=== PATIENT | female | born 1985 | race Caucasian/White ===

== ENCOUNTER 2019-11-22 17:18 | Emergency (ER) | payer OTHER, SELFPAY ==
[2019-11-22 17:18] VITALS: BP 127/87; PULSE 11; RESP 18; TEMP 36.8; O2SAT 97; BMI 28.9
--- NOTE | 2019-11-22 17:50 | ED.VIS.GEN ---
History of Present Illness Chief Complaint: Headache Informant: Patient Narrative: Patient's presents for evaluation of headache vomiting and diarrhea. Patient states that last Sunday she had a typical migraine for her. She took her triptan and by Sunday was gone. However on Sunday she began to have vomiting and diarrhea. She notes a bit of a different headache and that it is all frontal. She next notes some neck soreness. She states that as long she remains still the headaches not as bad but if she attempts to move it gets worse. She went to [facility] this morning where she states that she received a migraine cocktail and something to drink for her stomach but she continues to have diarrhea. She has not had any Imodium or antidiarrheal medications. She states is difficult for her to take other medications and keep them down because of the vomiting. No rashes. No fevers. Past Medical History - Allergies and Home Meds Allergies/Adverse Reactions: Allergies codeine Adverse Reaction (Intermediate, Verified 11/22/19 17:21) Other vomiting acetaminophen [From Vicodin] Adverse Reaction (Verified 11/22/19 17:21) Vomiting hydrocodone bitartrate [From Vicodin] Adverse Reaction (Verified 11/22/19 17:21) Vomiting meperidine HCl [From Demerol] Adverse Reaction (Verified 11/22/19 17:21) Vomiting Primary Care Physician: Ashlie Macias MD [Primary Care Provider] - Smoking Status: Unknown if ever smoked Review of Systems General: Denies: Chills, Fever, Sweats Eyes: Denies: Visual changes - bilaterally, Diplopia ENT: Denies: Rhinorrhea, Sore throat Cardiovascular: Denies: Chest pain, Palpitations Respiratory: Denies: Dyspnea, Cough, Dyspnea on exertion Gastrointestinal: Reports: Nausea, Vomiting, Diarrhea. Denies: Abdominal pain, Melena, Hematochezia Genitourinary: Denies: Dysuria, Hematuria, Frequency Musculoskeletal: Reports: Neck pain. Denies: Back pain, Extremity Pain Skin: Denies: Rash, Wounds Neurological: Reports: Headache. Denies: Weakness, Numbness Physical Exam Vital Signs/Narrative: Vital Signs Temp Pulse Resp BP Pulse Ox 11/22/19 17:18 98.2 F 11 L 18 127/87 H 97 Inital Vital Signs reviewed: Yes General: Well nourished, Well developed, No Acute Distress Head: Normocephalic, Atraumatic Eyes: Perrl, EOMI ENT: Moist mucous membranes, No rhinorrhea Neck: Supple, Nontender Cardiovascular: Regular rate, Regular rhythm, No murmurs Respiratory: No distress, CTA bilaterally, Chest nontender Abdomen: Soft, Nontender, Nondistended, Normal bowel sounds Back: Nontender, Normal Inspection Extremities: Nontender, No edema Skin: Normal color, No rash Neurological: Alert, Oriented x3, Cranial nerves II-XII grossly intact, Normal Strength, Normal Sensation Psychological: Normal affect, Normal Mood Diagnostic/Tx/Re-eval - Medical Decision Making She received IV fluids Compazine Toradol Benadryl. Her headache is better not resolved but better. I think her headache is different than her classical migraines because it is more of a tension headache. She has been vomiting having this gastroenteritis now her neck is a little sore which is probably causing a bit of a tension headache. No write for to have Zofran at home. Recommend some Imodium as well as well as anti-inflammatories. Continue to orally hydrate return if worsening or concerns ED Disposition - Plan for ED Patient: Disposition: Home or Assisted Living Diagnosis: Headache, Gastroenteritis Instructions: ED CEPHALGIA Tension Headache, ED Viral Gastroenteritis Prescriptions: Ondansetron [Zofran Odt] 4 mg PO Q6H PRN PRN #20 tab PRN Reason: Nausea Transmission Status: Pending to [facility] Referrals: Ashlie Macias MD [Primary Care Provider] - As Needed
[2019-11-22] MEDS: DiphenhydrAMINE 50 MG/ML Syringe 25 MG IV (18:24)
[2019-11-22] MEDS: 0.9% Normal Saline 1,000 ML 999 ML IV (18:24)
[2019-11-22] MEDS: proCHLORPERazine 10 MG/2 ML Vial IV (18:24)
[2019-11-22] MEDS: Ketorolac 30 MG/ML Syringe IV (18:24)
[2019-11-22 19:18] VITALS: BP 109/66; PULSE 97; RESP 18; O2SAT 97
[2019-11-22 20:48] VITALS: RESP 16
== END 2019-11-22 20:49 | disposition home or self-care (01) ==
PROVIDERS: Emergency Provider Emergency Medicine; PCP Internal Medicine
DX: R51 Headache (principal); K52.9 Noninfective gastroenteritis and colitis, unspecified
CPT/HCPCS: 96361; 96374; 96375; 99284; J7030; A4216

== ENCOUNTER → 2020-03-04 17:38 | Outpatient (CLI) | payer OTHER, SELFPAY | PROVIDERS: PCP Internal Medicine | DX: Z20.828 Contact with and (suspected) exposure to other viral communicable diseases (principal) | CPT/HCPCS: 87635; C9803; U0003 ==

== ENCOUNTER 2020-05-24 07:35 | Outpatient (RCR) | payer OTHER, SELFPAY | END 2020-05-31 23:59 | LOC: LABSPEC 07:35 | PROVIDERS: PCP Internal Medicine; Referring Provider Family Medicine Geriatric Medicine; Visit Provider Family Medicine Geriatric Medicine | DX: Z03.818 Encounter for observation for suspected exposure to other biological agents ruled out (principal) ==

== ENCOUNTER 2020-05-26 10:00 | Outpatient (RCR) | payer OTHER, SELFPAY | END 2020-05-31 23:59 | LOC: EMPH 10:00 | PROVIDERS: PCP Internal Medicine; Visit Provider Family Medicine Geriatric Medicine | DX: Z03.818 Encounter for observation for suspected exposure to other biological agents ruled out (principal) | CPT/HCPCS: 87426 ==

== ENCOUNTER 2020-06-30 14:05 | Outpatient (RCR) | payer OTHER, SELFPAY | END 2020-07-01 23:59 | LOC: EMPH 14:05 | PROVIDERS: PCP Internal Medicine; Visit Provider Family Medicine Geriatric Medicine | DX: Z03.818 Encounter for observation for suspected exposure to other biological agents ruled out (principal) | CPT/HCPCS: 87426 ==

== ENCOUNTER 2020-08-12 10:55 | Outpatient (RCR) | payer OTHER, SELFPAY | END 2020-08-29 23:59 | LOC: EMPH 10:55 | PROVIDERS: Visit Provider Family Medicine Geriatric Medicine | DX: Z03.818 Encounter for observation for suspected exposure to other biological agents ruled out (principal) | CPT/HCPCS: 87426 ==

== ENCOUNTER 2020-09-23 20:36 | Outpatient (RCR) | payer OTHER, SELFPAY | END 2020-09-29 23:59 | LOC: EMPH 20:36 | PROVIDERS: Visit Provider Family Medicine Geriatric Medicine | DX: Z03.818 Encounter for observation for suspected exposure to other biological agents ruled out (principal) | CPT/HCPCS: 87426 ==

== ENCOUNTER 2020-10-27 07:36 | Outpatient (RCR) | payer OTHER, SELFPAY | END 2020-10-29 23:59 | LOC: EMPH 07:36 | PROVIDERS: Referring Provider Family Medicine Geriatric Medicine; Visit Provider Family Medicine Geriatric Medicine | DX: Z03.818 Encounter for observation for suspected exposure to other biological agents ruled out (principal) | CPT/HCPCS: 87426 ==

== ENCOUNTER 2020-11-26 08:47 | Outpatient (RCR) | payer OTHER, SELFPAY | END 2020-11-29 23:59 | LOC: EMPH 08:47 | PROVIDERS: Referring Provider Family Medicine Geriatric Medicine; Visit Provider Family Medicine Geriatric Medicine | DX: Z03.818 Encounter for observation for suspected exposure to other biological agents ruled out (principal) | CPT/HCPCS: 87426 ==

== ENCOUNTER 2020-12-28 11:21 | Outpatient (RCR) | payer OTHER, SELFPAY | END 2020-12-29 23:59 | LOC: EMPH 11:21 | PROVIDERS: Referring Provider Family Medicine Geriatric Medicine; Visit Provider Family Medicine Geriatric Medicine | DX: Z03.818 Encounter for observation for suspected exposure to other biological agents ruled out (principal) | CPT/HCPCS: 87426 ==

== ENCOUNTER 2021-01-07 07:52 | Outpatient (RCR) | payer OTHER, SELFPAY | END 2021-01-29 23:59 | LOC: EMPH 07:52 | PROVIDERS: Referring Provider Family Medicine Geriatric Medicine; Visit Provider Family Medicine Geriatric Medicine | DX: Z03.818 Encounter for observation for suspected exposure to other biological agents ruled out (principal) | CPT/HCPCS: 87426 ==

== ENCOUNTER 2021-03-01 16:09 | Outpatient (RCR) | payer OTHER, SELFPAY | END 2021-03-01 23:59 | disposition home or self-care (01) | LOC: EMPH 16:09 | PROVIDERS: Referring Provider Family Medicine Geriatric Medicine; Visit Provider Family Medicine Geriatric Medicine | DX: Z03.818 Encounter for observation for suspected exposure to other biological agents ruled out (principal) | CPT/HCPCS: 87426 ==

== ENCOUNTER 2021-03-04 14:08 | Outpatient (RCR) | payer OTHER, SELFPAY ==
[2021-03-02 00:23] VITALS: BMI 28.9
== END 2021-03-31 23:59 ==
LOC: EMPH 14:08
PROVIDERS: Referring Provider Family Medicine Geriatric Medicine; Visit Provider Family Medicine Geriatric Medicine
DX: Z03.818 Encounter for observation for suspected exposure to other biological agents ruled out (principal)
CPT/HCPCS: 87426

== ENCOUNTER 2021-04-01 10:45 | Outpatient (RCR) | payer OTHER, SELFPAY ==
[2021-04-01 00:17] VITALS: BMI 28.9
== END 2021-05-01 23:59 ==
LOC: EMPH 10:45
PROVIDERS: Referring Provider Family Medicine Geriatric Medicine; Visit Provider Family Medicine Geriatric Medicine
DX: Z03.818 Encounter for observation for suspected exposure to other biological agents ruled out (principal)

== ENCOUNTER 2021-04-06 17:36 | Outpatient (RCR) | payer OTHER, SELFPAY ==
--- NOTE | 2021-06-14 13:31 | HP.PT.NRP ---
TMAMY HERNÁNDEZ was seen in my office for initial evaluation on . The following Plan of Care was established for this patient: This patient was last seen in our office 04/06/21. Pertinent comments regarding their Physical therapy will appear below: Pt. was seen in PT for self pay DN for her HAs. Pt. has not been seen in several months and will be DC from PT at this point in time. At this point I will be discontinuing this patient from physical therapy. I would be happy to see this patient again in the future if found appropriate by the physician. Thank you! Roberto Leonard, ROBERTHT
== END 2021-04-06 19:00 | disposition home or self-care (01) ==
LOC: PT 17:36
DX: R69 Illness, unspecified (principal)

== ENCOUNTER 2021-05-23 06:43 | Outpatient (RCR) | payer OTHER, SELFPAY ==
[2021-05-02 00:13] VITALS: BMI 28.9
== END 2021-05-31 23:59 ==
LOC: EMPH 06:43
PROVIDERS: Referring Provider Family Medicine Geriatric Medicine; Visit Provider Family Medicine Geriatric Medicine
DX: Z03.818 Encounter for observation for suspected exposure to other biological agents ruled out (principal)
CPT/HCPCS: 87426

== ENCOUNTER 2021-06-23 10:22 | Outpatient (RCR) | payer OTHER, SELFPAY ==
[2021-06-01 00:19] VITALS: BMI 28.9
== END 2021-07-01 23:59 ==
LOC: EMPH 10:22
PROVIDERS: Referring Provider Family Medicine Geriatric Medicine; Visit Provider Family Medicine Geriatric Medicine
DX: Z03.818 Encounter for observation for suspected exposure to other biological agents ruled out (principal)
CPT/HCPCS: 87426

== ENCOUNTER 2021-10-20 16:10 | Outpatient (RCR) | payer OTHER, SELFPAY ==
[2021-07-02 00:18] VITALS: BMI 28.9
== END 2021-10-29 23:59 ==
LOC: EMPH 16:10
PROVIDERS: Referring Provider Family Medicine Geriatric Medicine; Visit Provider Family Medicine Geriatric Medicine
DX: Z03.818 Encounter for observation for suspected exposure to other biological agents ruled out (principal)
CPT/HCPCS: 87811

== ENCOUNTER 2021-12-22 15:18 | Outpatient (RCR) | payer OTHER, SELFPAY | END 2021-12-29 23:59 | LOC: LABSPEC 15:18 | PROVIDERS: Visit Provider Family Medicine Geriatric Medicine | DX: Z01.84 Encounter for antibody response examination (principal) | CPT/HCPCS: 87811 ==

== ENCOUNTER 2022-04-13 07:42 | Day surgery (SDC) | payer OTHER, SELFPAY ==
--- NOTE | 2022-04-11 16:10 | PCM.HP.BLA ---
History and Physical Date of Admission: 04/13/22 HPI: The patient is a 36 year old female presenting for pre-operative visit. She is scheduled for hysteroscopy with endometrial ablation, bilateral salpingectomy, right ovarian cystectomy, labiaplasty, for hypertrophic labia, menorrhagia, sterilization and right ovarian dermoid cyst on 04/13/22. Procedure discussed along with risks, benefits and complications. Other alternatives discussed for management. Consent form signed? needs updated. ? ? PAST MEDICAL HISTORY PAST MEDICAL HISTORY Diagnosis Date ? Abnormal blood chemistry test 10/2015 ? abnormal syphilis test, likely false +, repeat testing neg, see lab reports ? Abnormal Pap smear of cervix ? ? highschool age ? Anemia ? ? takes iron ? Broken jaw (HCC) ? ? Closed fracture of navicular (scaphoid) bone of wrist 08/13/2002 ? Wrist fracture/Right wrist ? Headache ? ? Irregular menstrual cycle ? ? Irregular periods ? Migraine with aura ? ? PMH - PAST MEDICAL HISTORY OF ? ? left acl tear ? PMH - PAST MEDICAL HISTORY OF ? ? Dislocated left knee cap ? ? PAST SURGICAL HISTORY PAST SURGICAL HISTORY Procedure Laterality Date ? BOTOX INJECTION ? 09/13/2021 ? W/O [facility] [place] ? DELIVERY ONLY ? 03/24/2016 ? , low transverse ? SECTION HX ? 04/26/2012 ? INSERT INTRAUTERINE DEVICE ? 10/31/2018 ? kyleena - removed 03/02/2022 malposition ? MYRINGOTOMY ASPIR&/EUSTACHIAN TUBE NFLTJ ANES ? ? ? Myringotomy/tubes ? PAST SURGICAL HISTORY OF ? ? ? Jaw surgery ? PAST SURGICAL HISTORY OF ? ? ? ACL repair ? UNSPECIFIED ORAL SURGERY PROCEDURE, BY REPORT ? ? ? WISDOM TEETH ? ? ? CURRENT MEDICATIONS Current Outpatient Medications Medication Sig Dispense Refill ? etonogestrel (NEXPLANON) subdermal implant 68 mg 1 Each by SUBDERMAL route as directed. 1 Each 0 ? rizatriptan (MAXALT) 10 mg tablet 1/2 tab at onset of headache. repeat in 2 hours if not headache free 9 tablet 11 ? propranolol (INDERAL) 20 mg tablet Take 1 tablet by mouth twice daily. 60 tablet 5 ? pantoprazole DR (PROTONIX) 40 mg tablet Take 1 tablet by mouth daily before breakfast. Take on empty stomach, 1/2 hr before meal. 90 tablet 3 ? tiZANidine (ZANAFLEX) 4 mg tablet Take 0.25-1 tablets by mouth every 8 hours as needed. 60 tablet 5 ? escitalopram oxalate (LEXAPRO) 20 mg tablet Take 0.5 tablets by mouth once daily. 45 tablet 3 ? spironolactone (ALDACTONE) 50 mg tablet Take 100 mg by mouth once daily. ? loratadine (CLARITIN) 10 mg tablet Take 10 mg by mouth once daily. ? ? ? fluticasone (FLONASE) 50 mcg/actuation nasal spray Use 2 Sprays in each nostril once daily. Rinse mouth after use. 1 Bottle 2 ? traMADol (ULTRAM) 50 mg tablet Take 1 tablet by mouth every 6 hours as needed for pain for up to 5 days. 8 tablet 0 ? ondansetron (ZOFRAN) 4 mg tablet Take 1 tablet by mouth every 8 hours as needed for nausea/vomiting. 20 tablet 0 ? ibuprofen (MOTRIN) 600 mg tablet Take 1 tablet by mouth every 6 hours as needed for pain. FOR PAIN. 30 tablet 0 ? No current facility-administered medications for this visit. ? ? ALLERGIES: Codeine, Demerol [Meperidine (Pf)], Hydrocodone Bitartrate, Vicodin [Hydrocodone-Acetaminophen], and Zoloft [Sertraline Hcl] ? PERSONAL HISTORY: SOCIAL HISTORY Social History ? Tobacco Use ? Smoking status: Former ? ? Years: 1.00 ? ? Types: Cigarettes ? Smokeless tobacco: Never ? Tobacco comments: ? ? Passive Vaping Use ? Vaping Use: Never used Substance Use Topics ? Alcohol use: Yes ? ? Comment: Occasionally- not while ? Drug use: No ? FAMILY HISTORY: FAMILY HISTORY FAMILY HISTORY Problem Relation Age of Onset ? Diabetes Mother ? ? Hypertension Mother ? ? Stroke Paternal Grandfather ? ? Prostate Cancer Maternal Grandfather ? ? other (FMD) Other ? ? ? REVIEW OF SYMPTOMS: GENERAL: denies fevers or chills ENDOCRINOLOGY: has not been on steroids Cardiology : denies palpitations or chest pain Respiratory: denies SOB or cough Hematology: denies history of prolonged bleeding or easy bruising or VTE Allergy: Denies history of personal or family history of allergy to anesthesia ? PHYSICAL EXAMINATION: ? VITALS: Weight 146 lb (66.2 kg), last menstrual period 02/12/2022. ? GENERAL: The patient is well nourished, well hydrated in no acute distress. , The patient is oriented to time, place, and person. NECK: Supple. No lynphadenopathy, normal thyroid, no thyromegaly. LUNGS: Clear to auscultation bilaterally. no wheezes, rhonchi or rales HEART: Regular rate and rhythm, Normal heart sounds, and No murmurs or gallops ? Pelvic US 04/06/22 94 x 50 x 50 mm Right ovarian cyst 54 x 37 x 30 mm. Normal left ovary, uterus ? ? IMPRESSION: menorrhagia, labial hypertrophy, sterilization request, right ovarian dermoid cyst ? PLAN: The risks/benefits/alternatives and personal involved for the planned hsyteroscopy w/ ana, labiaplasty, right ovarian cystectomy and laparoscopic bilateral salpingectomy were reviewed with the patient. Her questions were answered to her satisfaction and she desires to proceed. Consent was signed. I reviewed with her postop instructions and expectations. ? ? I have reviewed and updated past medical and surgical history, medications and allergies Assessment & Plan Assessment/Plan (1) Labial hypertrophy: (2) Menorrhagia: (3) Consultation for sterilization: (4) Dermoid cyst of right ovary:
[2022-04-12 17:01] LABS: Hematocrit 36.2 % (37-47); Hemoglobin 12.4 g/dL (12.0-15.0); Mean Corp Hgb Conc 34.3 g/dL (32-36); Mean Corpuscular Hgb 31.7 pg (27.0-32.0); Mean Corpuscular Volume 92.6 fL (81-99); Mean Platelet Vol. 9.6 fl (6.2-12.0); Platelet Count 327 K/mm3 (150-450); RBC Distribution Width SD 40.9 fl (35.1-43.9); Red Blood Count 3.91 M/mm3 (4.2-5.4); White Blood Count 7.6 K/mm3 (4.4-11.0)
[2022-04-12 17:15] LABS: Partial Thromboplast Time 31.5 Seconds (24.1-36.2); Prothrombin Time (Protime)PT. 12.8 SECONDS (11.7-14.9)
[2022-04-13] VITALS (9 sets, daily range): BP systolic 100–110; BP diastolic 56–76; PULSE 57–92; RESP 16–20; TEMP 36.6–37.2; O2SAT 95–100; BMI 26.4
[2022-04-13 08:13] LABS: Internal QC Validated? YES +Cl - CLEAR BKGD; Pregnancy, Urine Negative Negative
[2022-04-13] MEDS: Lactated Ringers 1,000 ML 15 ML IV (08:38)
[2022-04-13] MEDS: Celecoxib 200 MG Capsule PO (08:39)
[2022-04-13] MEDS: Acetaminophen 500 MG Tablet 1000 MG PO (08:39)
--- NOTE | 2022-04-13 08:55 | FALS_PTH ---
PATIENT: TAMMY HERNNÁDEZ [place] [facility] [place][id number] AGE/SX: 36/F ROOM: RE04/13/[address]: Dr. Marguerite Mario MD : 1985 BED: DIS: 04/13/2022 SPEC #: [id number] RECD: 04/13/22 14:32 STATUS: GERARDO GILMAN #: [id number] LENNIE: 04/13/22 08:[address]: Marguerite Mario DEPT: SURGICAL PATHOLOGY RECD BY: Gian Thompson ENTERED: 04/14/22 07:54 SP TYPE: FALL TUBES OTHR DR: Dr. Ashlie Macias MD Tissues: A - Fallopian tube B - Right ovary C - Labium, NOS Procedures: Surgery Specimen Level II Surgery Specimen Level III Surgery Specimen Level IV HEADER OPERATION: Laparoscopic salpingectomy / labiaplasty, removal of right ovary cyst PRE-OP DIAGNOSIS: Hypertrophic labia, menorrhagia, sterilization, right ovarian dermoid cyst TISSUE SUBMITTED: A ? Bilateral fallopian tubes, B ? Right ovarian cyst, C ? Bilateral labia MICROSCOPIC DIAGNOSIS A. Bilateral fallopian tubes, salpingectomy: Bilateral fallopian tubes, no pathologic diagnosis. Paratubal cysts. B. 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 C. Bilateral labia, labiaplasty: Pieces of skin with focal hyperkeratosis and mild chronic inflammation, clinically labial hypertrophy. SJ:tenzin 04/17/2022 MICROSCOPIC DESCRIPTION Slides are reviewed. GROSS DESCRIPTION A - Received in fixative is one container labeled with the patient's name and designated bilateral fallopian tubes. The specimen consists of bilateral fallopian tubes including fimbrial ends measuring 7.5 cm in length and 0.5 cm in diameter and 6.5 cm in length and 0.6 cm in diameter. The fallopian tubes are not identified as right or left. A detached piece of tissue is also noted consisting of two paratubal cysts measuring 0.7 and 0.9 cm in greatest dimension. Sections reveal unremarkable cut surfaces. Service Station Equipment Mechanic sections are submitted in two cassettes with each cassette containing one fallopian tube. Cassette 1 also contains the paratubal cysts. B - Received in fixative is one container labeled with the patient's name and designated right ovarian cyst. The specimen consists of a previously, partially ruptured cyst measuring 4 x 2 x 1.5 cm. The cyst is filled with smith, white cheesy material. Multiple hair is also noted in the cyst contents. The entire cyst wall except small amount of cyst content is submitted in four cassettes. C - Received in fixative is one container labeled with the patient's name and designated bilateral labia. The specimen consists of two polypoid pieces of brown wrinkled skin measuring 3 x 2 x 0.5 cm and 3 x 2.5 x 0.5 cm. No skin lesion is identified. Service Station Equipment Mechanic sections are submitted in two cassettes with each cassette containing sections from one piece. / JOHN:tenzin 04/14/2022 TC:1 CPT: 81542 x2, 23220, 24598
--- NOTE | 2022-04-13 10:11 | DCINST_ITS ---
Discharge Instructions Procedure Other Diet Discharge Diet: No restrictions Activity May resume sexual activity in: 2 weeks Lifting Restrictions: 20-25 lbs Dressing / Incision Call your doctor if your incision/area has: Continuous Slow Oozing, Sudden Increased Bleeding, Increased Pain/ Swelling, Increased Redness, Foul Smelling Discharge and Swelling at the incision site Call your doctor if you observe: Fever of 101 or Higher, Inability to urinate, Inability to have a bowel movement, Using more than 1 pad per hour and Uncontrolled pain Additional Dressing/Incision Instructions:: You have skin glue over your incision sites, do not pick off. You may shower and let the soap and water run over the incision sites and dab dry. Follow Up Care Please Follow Up With: Tina Ruth MD When: 1-2 weeks post OP if you need an appointment please call [phone] Test Results: Test results from this visit will be discussed in further detail at your follow- up appointment, if applicable. Discharge Plan Admission Attending Provider: Marguerite Mario Primary Care Provider: Ashlie Macias Discharge Orders/Prescriptions Prescriptions: No Action Ferrous Sulfate 1 tab PO DAILY tizanidine 4 mg tablet 4 mg PO DAILY Label Comments: TAKE 1/4 TO 1 TABLET BY MOUTH EVERY 8 HOURS NEEDED rizatriptan 10 mg tablet 5 mg PO PRN PRN (Reason: Migraine Headache) Label Comments: TAKE 1/2 (ONE-HALF) TABLET BY MOUTH AT ONSET OF HEADACHE. REPEAT IN 2 HOURS IF NOT HEADACHE FREE pantoprazole [Protonix] 40 mg tablet,delayed release (DR/EC) 40 mg PO DAILY Label Comments: TAKE 1 TABLET BY MOUTH ONCE DAILY 1/2 (ONE-HALF) HOUR BEFORE BREAKFAST ON AN EMPTY STOMACH propranolol 20 mg tablet 20 mg PO BID Label Comments: TAKE 1 TABLET BY MOUTH TWICE DAILY spironolactone 50 mg tablet 50 mg PO DAILY Label Comments: TAKE 1 TABLET BY MOUTH TWICE DAILY AT THE SAME TIME EVERY DAY cholecalciferol (vitamin D3) [Vitamin D3] 10 mcg (400 unit) Capsule 10 mcg PO DAILY zinc Tablet,Chewable 1 tab PO DAILY escitalopram oxalate [Lexapro] 20 mg tablet 10 mg PO DAILY Label Comments: TAKE 1/2 (ONE-HALF) TABLET BY MOUTH ONCE DAILY Referrals / Follow Up: Ashlie Macias MD [Primary Care Provider] - Disposition Disposition (needs filled in before D/C Order can be placed): Home, Self Care
--- NOTE | 2022-04-13 10:34 | DCINST_ITS ---
Discharge Instructions Diet Discharge Diet: No restrictions Activity May resume sexual activity in: 2 weeks Lifting Restrictions: none Dressing / Incision Call your doctor if your incision/area has: Continuous Slow Oozing, Sudden Increased Bleeding, Increased Pain/ Swelling, Increased Redness, Foul Smelling Discharge and Swelling at the incision site Call your doctor if you observe: Fever of 101 or Higher, Inability to urinate, Inability to have a bowel movement, Using more than 1 pad per hour and Uncontrolled pain Cleanse incision/area with: Soap & Water Additional Dressing/Incision Instructions:: You have skin glue over your incision sites, do not pick off. You may shower and let the soap and water run over the incision sites and dab dry. Follow Up Care Please Follow Up With: Marguerite Mario MD When: In approx 1 week as scheduled or Call [phone] to make an appointment or with any concerns. Test Results: Test results from this visit will be discussed in further detail at your follow- up appointment, if applicable. Discharge Plan Admission Primary Reason for Your Visit: Endometrial ablation, bilateral labiaplasty, tubal, rt ovarian cystectomy Attending Provider: Marguerite Mario Primary Care Provider: Ashlie Macias Discharge Orders/Prescriptions Prescriptions: No Action Ferrous Sulfate 1 tab PO DAILY tizanidine 4 mg tablet 4 mg PO DAILY Label Comments: TAKE 1/4 TO 1 TABLET BY MOUTH EVERY 8 HOURS NEEDED rizatriptan 10 mg tablet 5 mg PO PRN PRN (Reason: Migraine Headache) Label Comments: TAKE 1/2 (ONE-HALF) TABLET BY MOUTH AT ONSET OF HEADACHE. REPEAT IN 2 HOURS IF NOT HEADACHE FREE pantoprazole [Protonix] 40 mg tablet,delayed release (DR/EC) 40 mg PO DAILY Label Comments: TAKE 1 TABLET BY MOUTH ONCE DAILY 1/2 (ONE-HALF) HOUR BEFORE BREAKFAST ON AN EMPTY STOMACH propranolol 20 mg tablet 20 mg PO BID Label Comments: TAKE 1 TABLET BY MOUTH TWICE DAILY spironolactone 50 mg tablet 50 mg PO DAILY Label Comments: TAKE 1 TABLET BY MOUTH TWICE DAILY AT THE SAME TIME EVERY DAY cholecalciferol (vitamin D3) [Vitamin D3] 10 mcg (400 unit) Capsule 10 mcg PO DAILY zinc Tablet,Chewable 1 tab PO DAILY escitalopram oxalate [Lexapro] 20 mg tablet 10 mg PO DAILY Label Comments: TAKE 1/2 (ONE-HALF) TABLET BY MOUTH ONCE DAILY Referrals / Follow Up: Ashlie Macias MD [Primary Care Provider] - Disposition Disposition (needs filled in before D/C Order can be placed): Home, Self Care
--- NOTE | 2022-04-13 10:37 | PCM.OPRPT ---
Problems Associated Problem List Diagnoses (1) Dermoid cyst of right ovary: (2) Consultation for sterilization: (3) Menorrhagia: (4) Labial hypertrophy: Report of Operation Date of Procedure: 04/13/22 Pre-Operative Diagnosis: right ovarian cyst, sterilization request, menorrhagia, labial hypertroph Post-Operative Diagnosis: same Surgery/Procedure Performed:: Laparoscopic bilateral salpingectomy, right ovarian cystectomy, hysteroscopy with Sonia endometrial ablation and bilateral labiaplasty Description of Surgical Findings:: . Uterus, cervix, vagina and endometrial cavity. Normal-appearing bilateral fallopian tubes and left ovary. Normal peritoneal cavity. Right ovary with dermoid cyst with hair and sebaceous material. Right ovary is also somewhat adhered to the posterior cul-de-sac and some endometriosis implants along the right lateral pelvic sidewall. Surgeon: Marguerite Mario development disability specialist: Tina Ruth Type of Anesthesia: General Anesthesiologist: Katherine Montana Special Medications: none Specimen's removed: bilateral fallopian tubes, bilataral labia minora skin, right ovarian cyst Drains: none Estimated Blood Loss (mL): 20 Fluids Replaced: 1000 Description of Procedure: The patient was taken to the operating room where she was prepped and draped in the dorsolithotomy position. A weighted speculum was placed in the vagina and the anterior lip of the cervix was grasped with a tenaculum. The Ermelinda uterine manipulator was placed and the remainder of the instruments were removed from the vagina. Attention was turned to the abdomen. All port sites were infiltrated with 0.5% Marcaine before skin incisions were made. A 5 mm intraumbilical incision was made. The anterior abdominal wall was tented up with 2 towel clamps while a 5 mm blade less trocar and sleeve were inserted with the Visiport directly. Intraperitoneal placement was confirmed with the laparoscope. The pneumoperitoneum was created and the underlying abdominal contents were intact. The patient was placed in Trendelenburg. Right and left lower quadrant ports were placed under direct visualization lateral to the inferior epigastric vessels. The bowel was swept away and the above findings were noted. The Enseal device was used to clamp seal and transect the antimesenteric portions of the right tube to the cornual insertion of the uterus. The tube was amputated from the uterus and the pedicles were all confirmed to be hemostatic. The same procedure was performed on the contralateral side. The specimens were brought out through a 5 mm port. The pedicles were again examined and found to be hemostatic. The right ovarian cyst was then identified. On the antimesenteric portion an incision was made across the ovarian cyst. The ovary was dissected off the cyst wall. When most of the cyst had been isolated the cyst was incidentally ruptured and sebaceous and hair materials came out of the cyst. These were suction irrigated out of the pelvis. The remainder the cyst wall was peeled off. Suction wilton weaver was used to irrigate and suction any debris out of the pelvis. The appendix was visualized and noted to be normal. The right upper quadrant was normal. Some fibrillar material was placed in the bed of the ovarian cyst wall after hemostasis was assured. The ovary was folded over the fibrillar. Juana was placed over all the pedicles and excellent hemostasis was noted. The specimen was placed in a 5 mm bag and brought through the umbilical port. The lateral ports were removed under direct visualization and no active bleeding was noted. The pneumoperitoneum was released. Dr. Bangura provided uterine manipulation, tissue retraction and assistance during this procedure as well as assistance peeling the ovarian cyst off the wall. The skin incisions were closed with Monocryl suture in a subcuticular fashion and skin glue by Dr. Bangura as I returned to the bottom portion of the case. The Ermelinda uterine manipulator was removed. The weighted speculum was placed in the vagina and the anterior lip of the cervix was grasped with a single-tooth tenaculum. The 5mm hysteroscope was placed into the uterine cavity and the above findings were noted. Bilateral tubal ostia were identified. The uterus sounded to 8cm and the cervical length was 4cm. The endometrial cavity length was 4cm. The hysteroscope was removed. The Sonia device was set to 4cm. The instrument was then seated into the endometrial cavity and the indicator was in the green. The cervical seal balloon was inflated and the uterine integrity test was passed. The ablation procedure was initiated and completed without interruption. During the ablation procedure gentle traction was held on the tenaculum and the Sonia device was held up against the uterine fundus. When the ablation procedure was completed the Sonia was removed. The tenaculum was removed and the tenaculum site was noted to be hemostatic. 200 cc of normal saline fluid deficit were noted during hysteroscopy. The labia minora were then identified and grasped and gentle traction was placed on them with Allis clamps. A pen was used to lawanda the resection areas to make them symmetrical and smaller in size. This was performed on both sides. Metzenbaum scissors were then used to amputate the excess tissue. 3-0 Vicryl Rapide was used to oversew the edges of the labia in a running standard fashion. A single [id number] was needed on the left side to obtain hemostasis. Excellent hemostasis was then noted. All sponge and needle counts were correct. A vaginal sweep was performed by me. The patient was awakened and taken to the recovery room in stable condition. Grafts/Implants Used: none Procedure Start Time: 09:29 Procedure Stop Time: 10:26 Complications none Admit VTE Documentation VTE Present on Admission: No VTE Mechan Device Prophylaxis: SCD's VTE Pharm Prophylaxis ordered?: No Reason prophylaxis not ordered:: Procedure Not Indicated
== END 2022-04-13 12:54 | disposition home or self-care (01) ==
LOC: SDC 07:44 → AC 07:45
PROVIDERS: Anesthesiology; PCP Internal Medicine; Referring Provider Obstetrics & Gynecology; Visit Provider Obstetrics & Gynecology
PROC: (CPT 58661; principal; 2022-04-13 08:40)
DX: Z30.2 Encounter for sterilization (principal); N83.8 Other noninflammatory disorders of ovary, fallopian tube and broad ligament; D27.0 Benign neoplasm of right ovary; N89.4 Leukoplakia of vagina; F41.9 Anxiety disorder, unspecified; K21.9 Gastro-esophageal reflux disease without esophagitis; Z87.891 Personal history of nicotine dependence; Z79.899 Other long term (current) drug therapy
CPT/HCPCS: 58661; 58563; 56620; 00840; 36415; 81025; 85027; 85610; 85730; 86850; 86900; 86901; 88302; 88304; 88305; J7120; C1760; J2405

== ENCOUNTER 2022-06-19 12:03 | Emergency (ER) | payer OTHER, SELFPAY ==
[2022-06-19 12:04] VITALS: BP 120/70; PULSE 122; RESP 14; TEMP 37.1; O2SAT 95; BMI 27.4
--- NOTE | 2022-06-19 12:27 | ED.RN ---
pt's stated she just cant wait any longer.
== END 2022-06-19 12:27 | disposition left against medical advice (07) ==
LOC: ED 12:35
PROVIDERS: PCP Internal Medicine
DX: Z53.21 Procedure and treatment not carried out due to patient leaving prior to being seen by health care provider (principal)
CPT/HCPCS: 87811

== ENCOUNTER 2022-09-25 07:48 | Emergency (ER) | payer OTHER, SELFPAY ==
[2022-09-25 07:48] VITALS: BP 112/63; PULSE 112; RESP 16; TEMP 36.7; O2SAT 97; BMI 28.0
--- NOTE | 2022-09-25 08:00 | EX.ED.DYSGE1 ---
HPI History of Present Illness Chief Complaint: Back Detail of Chief Complaint: COld symptoms and back pain Narrative Narrative: Patient present secondary to cold symptoms and back pain. She states she has not felt well for the past 2 weeks feeling quite fatigued. Denny evening she developed cough, congestion, sore throat. She has not checked her temperature. One of her children recently had strep as well. She states secondary to coughing she threw her back out. She has pain in the low lumbar area that wraps to the hips. Pain does not radiate down her legs. [facility] Medical History Anemia Anxiety Former smoker Gastric reflux Heartburn Migraine headache Wears glasses Home Medications Ferrous Sulfate 1 tab PO DAILY 03/24/16 [History Last Taken 03/23/16 22:00] cholecalciferol (vitamin D3) 10 mcg (400 unit) capsule (Vitamin D3) 10 mcg PO DAILY 04/11/22 [History Last Taken Unknown] escitalopram oxalate 20 mg tablet (Lexapro) 10 mg PO DAILY 04/11/22 [History Last Taken Unknown] pantoprazole 40 mg tablet,delayed release (Protonix) 40 mg PO DAILY 04/11/22 [History Last Taken Unknown] propranolol 20 mg tablet 20 mg PO BID 04/11/22 [History Last Taken Unknown] rizatriptan 10 mg tablet 5 mg PO PRN PRN Migraine Headache 04/11/22 [History Last Taken Unknown] spironolactone 50 mg tablet 50 mg PO DAILY 04/11/22 [History Last Taken Unknown] tizanidine 4 mg tablet 4 mg PO DAILY 04/11/22 [History Last Taken Unknown] zinc 1 tab PO DAILY 04/11/22 [History Last Taken Unknown] tramadol 50 mg tablet 50 mg PO Q4H PRN PRN Pain #20 tabs 09/25/22 [Rx Last Taken Unknown] Allergy/AdvReac Type Severity Reaction Status Date / Time codeine AdvReac Intermediate Other Verified 09/25/22 07:50 acetaminophen [From Vicodin] AdvReac Vomiting Verified 09/25/22 07:50 hydrocodone bitartrate AdvReac Vomiting Verified 09/25/22 07:50 [From Vicodin] meperidine HCl [From Demerol] AdvReac Vomiting Verified 09/25/22 07:50 Surgical History History of mandibular surgery Hx of adenoidectomy Hx of anterior cruciate ligament surgery Hx of section Hx of wisdom tooth extraction Social History Smoking Status: Former smoker ROS ROS ED Constitutional Constitutional ED: Denies chills or fever(s) Eyes Eyes: Denies change in vision or discharge from eye(s) ENT ENT ED: Reports rhinorrhea and sore throat; Denies discharge from eye(s) Cardiovascular Cardiovascular: Denies chest pain or palpitations Respiratory/Chest Respiratory/Chest: Reports cough; Denies dyspnea Gastrointestinal Gastrointestinal: Denies abdominal pain, diarrhea, nausea or vomiting Genitourinary Genitourinary ED: Denies dysuria Musculoskeletal Musculoskeletal: Reports back pain and myalgias; Denies extremity pain Integumentary Denies Abrasions or rash Neurologic Neurologic: Denies headache(s) Psychiatric Psychiatric: Denies anxiety or depression Allergic/Immunologic Allergic/Immunologic ED: Denies lip swelling or urticaria EXAM Physical Exam Const Vital Signs: 09/25/22 07:48 Temperature 98.1 F Temperature Source Temporal Pulse Rate 112 H Respiratory Rate 16 Blood Pressure 112/63 Blood Pressure Mean 79 Pulse Ox 97 Oxygen Delivery Method Room Air Positive well nourished and well developed General Appearance ED: well developed HEENT Reports normocephalic and head/scalp atraumatic Eyes PERRL and EOMs intact bilaterally Neck supple Chest Wall inspection of chest normal and palpation of chest normal Resp normal respiratory effort and clear to auscultation bilaterally Cardio regular rate and regular rhythm GI non-tender Auscultation: hypoactive bowel sounds Palpation: soft Back/Spine no CVA tenderness Back/Spine Narrative: Mild tenderness in the low right lumbar paraspinal region. No midline tenderness. Extremity normal to inspection Neuro oriented x3 and no sensory deficits noted Sensorium / Orientation: alert Motor Exam: strength 5/5 throughout Psych mental status grossly normal Skin no rashes or lesions noted MDM MDM MDM Narrative Medical decision making narrative: Patient given IM Toradol for pain along with a Lidoderm patch to her back. Swab for COVID, influenza, rapid strep obtained. Urinalysis ordered to rule out infection. Lab Data Attestation: I reviewed the patient's lab results. Labs: Laboratory Results - last 24 hr 09/25/22 08:00 Urine Color Yellow Urine Clarity Clear Urine pH 6.5 Ur Specific Sharon 1.010 Urine Protein 15 H Urine Glucose (UA) Normal Urine Ketones Negative Urine Occult Blood 50 H Urine Nitrite Negative Urine Bilirubin Negative Urine Urobilinogen Normal Ur Leukocyte Esterase Negative Urine RBC 0-5 SEEN Urine WBC 0 SEEN Ur Squamous Epith Cells 0-5 SEEN Urine Bacteria 0 SEEN Urine Mucus 0 SEEN Treatment and Re-Evaluation :: Urinalysis reveals no sign of infection. Swab for COVID and influenza is negative. Rapid strep is negative. Test results discussed with the patient. I believe she has viral syndrome. She states she is unable to take ibuprofen at home because it irritates her stomach. I will write her a short course of tramadol and she can take Tylenol. I did do an [facility] report. She is only had 1 prescription for tramadol in the past 2 years. No other prescriptions have been written. Discharge Plan Triage Chief Complaint: Back ED Provider: Darlene Rodriguez Dx/Rx/DC Orders Clinical Impression: Viral syndrome, Back strain Instructions: ED Back Sprain/Strain, ED Viral Syndrome (Adult) Prescriptions: New tramadol 50 mg tablet 50 mg PO Q4H PRN PRN (Reason: Pain) Qty: 20 0RF No Action Ferrous Sulfate 1 tab PO DAILY tizanidine 4 mg tablet 4 mg PO DAILY Label Comments: TAKE 1/4 TO 1 TABLET BY MOUTH EVERY 8 HOURS NEEDED rizatriptan 10 mg tablet 5 mg PO PRN PRN (Reason: Migraine Headache) Label Comments: TAKE 1/2 (ONE-HALF) TABLET BY MOUTH AT ONSET OF HEADACHE. REPEAT IN 2 HOURS IF NOT HEADACHE FREE pantoprazole [Protonix] 40 mg tablet,delayed release (DR/EC) 40 mg PO DAILY Label Comments: TAKE 1 TABLET BY MOUTH ONCE DAILY 1/2 (ONE-HALF) HOUR BEFORE BREAKFAST ON AN EMPTY STOMACH propranolol 20 mg tablet 20 mg PO BID Label Comments: TAKE 1 TABLET BY MOUTH TWICE DAILY spironolactone 50 mg tablet 50 mg PO DAILY Label Comments: TAKE 1 TABLET BY MOUTH TWICE DAILY AT THE SAME TIME EVERY DAY cholecalciferol (vitamin D3) [Vitamin D3] 10 mcg (400 unit) Capsule 10 mcg PO DAILY zinc Tablet,Chewable 1 tab PO DAILY escitalopram oxalate [Lexapro] 20 mg tablet 10 mg PO DAILY Label Comments: TAKE 1/2 (ONE-HALF) TABLET BY MOUTH ONCE DAILY Primary Care Provider: Ashlie Macias Referrals: Ashlie Macias MD [Primary Care Provider] - 1 Week if not improving Disposition Disposition: Home, Self Care
[2022-09-25] MEDS: Lidocaine 5% Patch 1 PATCH TOPICAL (08:12)
[2022-09-25] MEDS: Ketorolac 60 MG/2 ML Vial IM (08:12)
[2022-09-25 08:19] LABS: Bacteria 0 SEEN /hpf (None Seen); Mucous, Urine 0 SEEN /hpf (<or=2+); White Blood Cells 0 SEEN /hpf (0-5)
[2022-09-25 08:23] LABS: Color, Urine Yellow (Yellow); Glucose, Dipstick Normal (Normal); Ketone-Dipstick Negative (Negative); Leukocyte Esterase-Dipstick Negative /ul (Negative); Nitrite-Dipstick Negative (Negative); Occult Blood-Urine 50 /ul (Negative); Protein-Dipstick 15 mg/dl (Negative); Urine Bilirubin Dipstick Negative (Negative); Urine Clarity Clear (Clear); Urine Urobilinogen Normal (Normal); Urine pH 6.5 (5.0 - 8.0)
[2022-09-25 08:32] LABS: Red Blood Cells-Urine 0-5 SEEN /hpf (0-5); Squamous Epithelial Cells - UA 0-5 SEEN /hpf (5-10)
== END 2022-09-25 09:17 | disposition home or self-care (01) ==
PROVIDERS: Emergency Provider Emergency Medicine; PCP Internal Medicine; Visit Provider Emergency Medicine
DX: S39.012A Strain of muscle, fascia and tendon of lower back, initial encounter (principal); X58.XXXA Exposure to other specified factors, initial encounter; B34.9 Viral infection, unspecified; Z87.891 Personal history of nicotine dependence
CPT/HCPCS: 81001; 87428; 87880; 96372; 99282